=== PATIENT | male | born 1955 | race Caucasian/White ===

== ENCOUNTER → 2023-03-11 09:17 | Outpatient (CLI) | payer OTHER, SELFPAY ==
--- NOTE | ~2023-03-11 | MR_ITS ---
EXAMINATION: MR pelvis wo con DATE: 03/11/2023 10:53 INDICATION: Left hip pain. TECHNIQUE: Magnetic resonance imaging (MRI) of the pelvis was performed without intravenous contrast. COMPARISON: None. FINDINGS: There is lumbar levoscoliosis and severe spondylosis. No fracture. There is moderate right hip osteoa rthritis and severe left hip osteoarthritis. There is a small left hip joint effusion. There is mild tendinopathy of right gluteus minimus and gluteus medius tendons. There is tendinopathy and partial t ears of left gluteus minimus and gluteus medius tendons. There is mild bilateral trochanteric bursiti s. The iliopsoas tendons are normal. There is mild tendinopathy of the hamstring origins bilaterally. There is a small partial tear of the right hamstring origin. The prostate is mildly enlarged. IMPRESSION: 1. Moderate right hip osteoarthritis and severe left hip osteoarthritis. 2. Mild left hip osteoarthritis. 3. Partial tears of the left gluteus minimus and gluteus medius tendons. Reviewed, dictated and finalized at location E.
--- NOTE | ~2023-03-11 | MR_ITS ---
EXAMINATION: MR hip LT wo con DATE: 03/11/2023 11:10 INDICATION: Left hip pain. TECHNIQUE: Magnetic resonance imaging (MRI) of the left hip was performed without intravenous contras t. COMPARISON: None FINDINGS: Bones/cartilage: Bone alignment is normal. No fracture. There is severe left hip osteoarthritis with full-thickness ca rtilage loss superiorly with large acetabular subchondral cysts and marginal osteophytes. Labrum: There is maceration of the left acetabular labrum. Fluid: There is a small left hip joint effusion. There is mild left trochanteric bursitis. Soft tissues: There is tendinopathy of left gluteus minimus and gluteus medius tendons with partial tears. Left ezra opsoas tendon is normal. There is mild left trochanteric bursitis. IMPRESSION: 1. Severe left hip osteoarthritis. Reviewed, dictated and finalized at location E.
== END ==
PROVIDERS: PCP Internal Medicine; Visit Provider Internal Medicine
DX: M16.0 Bilateral primary osteoarthritis of hip (principal)
CPT/HCPCS: 72195; 73721